=== PATIENT | female | born 1970 | race Caucasian/White ===

== ENCOUNTER → 2019-11-30 15:47 | Outpatient (CLI) | payer BC, SELFPAY ==
--- NOTE | ~2019-11-30 | MM_ITS ---
EXAMINATION: MM screening umu BI w todd HISTORY: Screening mammogram, family history of breast cancer in her mother. TECHNIQUE: Craniocaudal and mediolateral oblique 3-D tomosynthesis images were obtained and synthetic 2-D images were generated. CAD analysis was submitted and interpreted. COMPARISON: 11/04/2018, 07/19/2017, 07/10/2016 BREAST PARENCHYMAL COMPOSITION: There are scattered areas of fibroglandular density. FINDINGS: RIGHT BREAST: There is possible architectural distortion which is best appreciated in the middle thir d of the breast 7 cm from the nipple on the mediolateral oblique view. LEFT BREAST: There is no evidence of suspicious mass, calcification, or architectural distortion to s uggest malignancy. There has been no significant interval change. IMPRESSION: 1. Possible right breast architectural distortion. 2. Additional mammographic views and possible breast ultrasound are recommended. BI-RADS Category 0: Incomplete: Needs additional imaging evaluation. Reviewed, dictated and finalized at location A. N CHAINER IMPRESSION: 1. Possible right breast architectural distortion. 2. Additional mammographic views and possible breast ultrasound are recommended . BI-RADS Category 0: Incomplete: Needs additional imaging evaluation.
== END ==
PROVIDERS: PCP Family Medicine Adolescent Medicine; Visit Provider Nurse Practitioner Obstetrics & Gynecology
DX: Z12.31 Encounter for screening mammogram for malignant neoplasm of breast (principal); R92.8 Other abnormal and inconclusive findings on diagnostic imaging of breast
CPT/HCPCS: 77063; 77067

== ENCOUNTER → 2019-12-02 09:44 | Outpatient (CLI) | payer BC, SELFPAY ==
--- NOTE | ~2019-12-02 | MMUS_ITS ---
EXAMINATION: MM diagnostic mammo unilat RT, US breast RT limited HISTORY: Possible architectural distortion of the right breast on screening mammogram TECHNIQUE: Additional 3-D tomosynthesis images of the right breast were performed and synthetic 2-D i mages were generated. CAD analysis was submitted and interpreted. High resolution limited right breas t ultrasound was performed. COMPARISON: 11/30/2019, 11/04/2018, 07/19/2017, 07/10/2016 FINDINGS: MAMMOGRAPHIC FINDINGS: No definite architectural distortion persists with additional views of the right breast. ULTRASOUND: There is no evidence of focal abnormal solid or cystic lesion in the vicinity of the mammographic fin ding in question. A small cluster of cysts measuring up to 4 mm is noted at the 10:00 location 7 cm f rom the nipple. IMPRESSION: 1. No mammographic or sonographic evidence of malignancy. 2. Recommend routine screening mammography in one year. BI-RADS Category 2: Benign finding(s). Reviewed, dictated and finalized at location A. L PRESS SET UP OPERATOR IMPRESSION: 1. No mammographic or sonographic evidence of malignancy. 2. Recommend routine screening mammography in one year. BI-RADS Category 2: Benign finding(s).
== END ==
PROVIDERS: PCP Nurse Practitioner Obstetrics & Gynecology; Visit Provider Family Medicine Adolescent Medicine
DX: R92.8 Other abnormal and inconclusive findings on diagnostic imaging of breast (principal)
CPT/HCPCS: 76642; 77065

== ENCOUNTER → 2021-02-10 10:12 | Outpatient (CLI) | payer BC, SELFPAY ==
--- NOTE | ~2021-02-10 | MM_ITS ---
EXAMINATION: MM screening umu BI w todd HISTORY: Screening mammogram TECHNIQUE: Craniocaudal and mediolateral oblique 3-D tomosynthesis images were obtained and synthetic 2-D images were generated. CAD analysis was submitted and interpreted. COMPARISON: 12/02/2019 diagnostic right mammogram and limited right breast ultrasound 11/30/2019 11/04/2018, 07/19/2017 bilateral digital screening mammogram examinations BREAST PARENCHYMAL COMPOSITION: There are scattered areas of fibroglandular density. FINDINGS: There is no evidence of suspicious mass, calcification, or architectural distortion to sugg est malignancy in either breast. There has been no suspicious interval change. IMPRESSION: 1. No mammographic evidence of malignancy. 2. Recommend routine screening mammography in one year. BI-RADS Category 1: Negative Reviewed, dictated and finalized at location A.
== END ==
PROVIDERS: Visit Provider Obstetrics & Gynecology Gynecology
DX: Z12.31 Encounter for screening mammogram for malignant neoplasm of breast (principal)
CPT/HCPCS: 77063; 77067

== ENCOUNTER 2021-07-18 07:33 | Outpatient (CLI) | payer BC, SELFPAY ==
--- NOTE | 2021-07-27 14:10 | WPDHOMESLEEP ---
Sleep Study - Home Unattended Date of Study: 07/18/21 <Destiny Rodriguez DO - Last Filed: 07/27/21 14:26> Ordering Provider: Nancy Mayen MD <Destiny Rodriguez DO - Last Filed: 07/27/21 14:26> Interpreting Provider: Destiny Rodriguez DO <Destiny Rodriguez DO - Last Filed: 07/27/21 14:26> Home Sleep Study Type: Apnea Link Air <Desitny Rodriguez DO - Last Filed: 07/27/21 14:26> Height: 1.7 m <Destiny Rodriguez DO - Last Filed: 07/27/21 14:26> Weight: 93.44 kg <Destiny Rodriguez DO - Last Filed: 07/27/21 14:26> Body Mass Index: 32.2 <Destiny Rodriguez DO - Last Filed: 07/27/21 14:26> Neck Circumference (inches): 15 <Destiny Rodriguez DO - Last Filed: 07/27/21 14:26> [place]: 9 <Destiny Rodriguez DO - Last Filed: 07/27/21 14:26> Reason for Sleep Study The patient state that she snores loudly and has non restorative sleep. He has excessive daytime sleepiness and needs to take a nap in the afternoon. <Destiny Rodriguez DO - Last Filed: 07/27/21 14:26> Sleep History The patient is a 51-year-old female with asthma that had a home sleep test ordered by her primary care physician. The patient states that she snores loudly and has non restorative sleep. The patient states that she often awakens from sleep short of breath. She often awakens at night with heartburn, belching or cough. She frequently snores loud enough that others complain. She frequently has trouble sleeping when she has periods she often wakes up gasping for air throughout the night. She frequently has breathing problems at night observed by her . She denies any heart palpitations at night. She frequently falls asleep during the day but never while driving. He has trouble worse due to sleepiness. She denies sleep paralysis and cataplexy. She does experience fitted dreamlike scenes upon awakening or falling asleep. She denies having any nightmares. She denies feeling Fedder depressed and rarely feels anxious. She denies noticing parts of her body jerk. She rarely kicks at night. She frequently experiences crawling and aching feelings in her legs but rarely has any leg pain during the night. The patient rarely florian her teeth during sleep and never wakes up with morning jaw pain. She is frequently bothered by pain during the day and is never awakened by pain throughout the night. She constantly wakes up feeling stiff in the morning with sore and achy muscles. The patient goes to bed at 11:00 p.m. on the weekdays and 11:00 p.m. to midnight on the weekends. It takes her 15 minutes to fall asleep. She usually wakes up 2-3 times per night to urinate. It takes her 10 minutes to fall back asleep. The patient typically wakes up between 7 and 730 on the weekdays and 8:00 a.m. on the weekends. The patient gets about 8 hours of sleep per night. The patient currently lives with her and her 2 sons. The patient denies consuming any caffeinated beverages within 2 hours of going to bed. She does not engage in physical exercise before bedtime. She does not read but she will watch television before falling asleep. She does take naps in the afternoon then they are refreshing. The patient denies tobacco, alcohol and recreational drug use. She does consume 2 caffeinated sodas per day. <Destiny Rodriguez DO - Last Filed: 07/27/21 14:26> [facility] Past Medical History Medical History: Medical History Asthma Rhinorrhea <Destiny Rodriguez DO - Last Filed: 07/27/21 14:26> Surgical History Surgical History: Surgical History History of cholecystectomy History of hip replacement <Destiny Rodriguez DO - Last Filed: 07/27/21 14:26> Family History Family History: Family History
[2021-07-27 14:20] VITALS: BMI 32.2
== END 2021-07-19 12:17 | disposition home or self-care (01) ==
LOC: ANHCSM 08:01
PROVIDERS: PCP Family Medicine Adolescent Medicine; Visit Provider Internal Medicine Critical Care Medicine
DX: G47.9 Sleep disorder, unspecified (principal); R53.83 Other fatigue
CPT/HCPCS: 95806

== ENCOUNTER → 2022-05-03 11:17 | Outpatient (CLI) | payer BC, SELFPAY ==
--- NOTE | ~2022-05-03 | MM_ITS ---
EXAMINATION: MM screening umu BI w todd HISTORY: Screening TECHNIQUE: Craniocaudal and mediolateral oblique 3-D tomosynthesis images were obtained and synthetic 2-D images were generated. CAD analysis was submitted and interpreted. COMPARISON: Comparison to multiple prior studies sequentially, with oldest reviewed study dated 07/10. BREAST PARENCHYMAL COMPOSITION: There are scattered areas of fibroglandular density. FINDINGS: There is no evidence of suspicious mass, calcification, or architectural distortion to sugg est malignancy in either breast. There has been no suspicious interval change. IMPRESSION: 1. No mammographic evidence of malignancy. 2. Recommend routine screening mammography in one year. BI-RADS Category 1: Negative Reviewed, dictated and finalized at location A.
== END ==
PROVIDERS: PCP Family Medicine Adolescent Medicine; Visit Provider Obstetrics & Gynecology Gynecology
DX: Z12.31 Encounter for screening mammogram for malignant neoplasm of breast (principal)
CPT/HCPCS: 77063; 77067

== ENCOUNTER → 2023-06-25 12:05 | Outpatient (CLI) | payer BC, SELFPAY ==
--- NOTE | ~2023-06-25 | MM_ITS ---
EXAMINATION: MM screening umu BI w todd HISTORY: Screening mammogram TECHNIQUE: Craniocaudal and mediolateral oblique 3-D tomosynthesis images were obtained and synthetic 2-D images were generated. CAD analysis was submitted and interpreted. COMPARISON: 05/03/2022, 02/10/2021 bilateral screening mammogram examinations BREAST PARENCHYMAL COMPOSITION: There are scattered areas of fibroglandular density. FINDINGS: There is no evidence of suspicious mass, calcification, or architectural distortion to sugg est malignancy in either breast. There has been no suspicious interval change. IMPRESSION: 1. No mammographic evidence of malignancy. 2. Recommend routine screening mammography in one year. BI-RADS Category 1: Negative Reviewed, dictated and finalized at location A.
== END ==
PROVIDERS: PCP Obstetrics & Gynecology Gynecology; Visit Provider Advanced Practice Midwife
DX: Z12.31 Encounter for screening mammogram for malignant neoplasm of breast (principal)
CPT/HCPCS: 77063; 77067

== ENCOUNTER → 2023-07-18 11:07 | Outpatient (CLI) | payer BC, SELFPAY ==
--- NOTE | ~2023-07-18 | DEXA_ITS ---
Bone Density Report Name: CHRISTI KAYE Age: 53 Sex: Female Ethnicity: White Date of : 1970 Indication: postmenopausal; screening for osteoporosis; Referring Provider: BENTLEY BRENNAN Study: Bone densitometry was performed. Exam Date: July 18, 2023 Accession number: [id number] Bone Density: Region BMD T-score Z-score Classification AP Spine (L1-L4) 1.163 1.1 2.1 Normal Femoral Neck (Right) 0.910 0.5 1.6 Normal Total Hip (Right) 0.995 0.4 1.1 Normal World Health Organization criteria for BMD impression classify patients as: Normal (T-score at or above -1.0), Osteopenia (T-score between -1.0 and -2.5), or Osteoporosis (T-score at or below -2.5). 10-year Fracture Risk: FRAX not reported because: All T-scores for Spine Total, Hip Total, Femoral Neck at or above -1.0 Clinical Information Provided by Patient: Has used the following medications: Vitamin D Patient maximum height was 67.1 Menopause Age: 51 No regular weight bearing exercise Drinks caffeinated beverages Onset of menses at age 13 Number of children 3 Impression: The patient has normal bone mass. Discussion: BONE DENSITY IS ABOVE THE MINIMUM DESIRABLE LEVEL AT ALL SKELETAL SITES TESTED. This patient?s bone mineral density is above the minimum desirable level (T-score -1.0 or better) at all sites measured. The patient should follow a healthful lifestyle (good nutrition with adequate calcium and vitamin D, and appropriate weight-bearing exercise). Follow-Up: Consider repeating this study in 5 years or sooner if there is some new clinical indication. Reported by: [facility] on 07/18/2023 11:19:00 AM. Reviewed, dictated and finalized at location Bety ROMAN
== END ==
PROVIDERS: PCP Family Medicine Adolescent Medicine; Visit Provider Advanced Practice Midwife
DX: Z78.0 Asymptomatic menopausal state (principal)
CPT/HCPCS: 77080

== ENCOUNTER 2024-07-18 10:44 | Outpatient (CLI) | payer BC, SELFPAY ==
--- NOTE | ~2024-07-18 | MM_ITS ---
EXAMINATION: MM screening umu BI w todd HISTORY: Screening TECHNIQUE: Craniocaudal and mediolateral oblique 3-D tomosynthesis images were obtained and synthetic 2-D images were generated. CAD analysis was submitted and interpreted. COMPARISON: Comparison to multiple prior studies sequentially, with oldest reviewed study dated 11/04. BREAST PARENCHYMAL COMPOSITION: Not dense: There are scattered areas of fibroglandular density. FINDINGS: There is no evidence of suspicious mass, calcification, or architectural distortion to sugg est malignancy in either breast. There has been no suspicious interval change. IMPRESSION: 1. No mammographic evidence of malignancy. 2. Recommend routine screening mammography in one year. BI-RADS Category 1: Negative Reviewed, dictated and finalized at location B.
== END 2024-07-18 10:45 | disposition home or self-care (01) ==
LOC: ANHIMG 10:45
PROVIDERS: PCP Family Medicine Adolescent Medicine; Visit Provider Obstetrics & Gynecology Gynecology
DX: Z12.31 Encounter for screening mammogram for malignant neoplasm of breast (principal)
CPT/HCPCS: 77063; 77067

== ENCOUNTER 2024-08-18 08:53 | Outpatient (CLI) | payer BC, SELFPAY ==
--- NOTE | 2024-09-08 18:32 | P.SLEEP_ITS ---
Sleep Study - Home Unattended Date of Study: 08/18/24 Ordering Provider: LOTUS Hernandez Interpreting Provider: Destiny Rodriguez DO Home Sleep Study Type: Watch PAT Height: 1.7 m Weight: 99.79 kg Body Mass Index: 34.4 Neck Circumference (inches): 14 [place]: 12 Reason for Sleep Study Snoring, daytime hypersomnia Sleep History The patient is a 54-year-old female that had a sleep study ordered by the [facility] for evaluation of daytime hypersomnia. The patient admits to snoring loudly, excessive daytime sleepiness, Trouble maintaining sleep as well as interruptions in breathing while asleep. The patient does admit to choking and gasping while asleep. She denies having trouble breathing on her back. She denies having morning headaches. She admits to having a dry or sore mouth/ throat in the morning. She admits to nocturnal heartburn. She admits to nocturia. She denies having difficulty falling asleep. She does have difficulty falling back asleep if she wakes up during the night. She admits to having difficulty waking up early without an alarm. She denies the use of hypnotics or sedatives. She denies feeling anxious about sleep. She admits to feeling tired or fatigued during the day. She admits to feeling unrefreshed in the morning. She does have there was to fall asleep during the day. She does feel drowsy while driving. She denies sleep paralysis, cataplexy and hypnagogic / hypnopompic hallucinations. She denies clenching and grinding her teeth. She denies kicking and jerking her legs excessively. She denies having a restless feeling in her legs. She goes to bed at 11:00 p.m. on work days and at 11:30 p.m. on non-work days. It takes her 1 hour to fall asleep on work days and 30 minutes on non-work days. She typically gets 8 hours of sleep daily. Her sleep is slightly more restorative on her days off. She denies taking any plan naps. She denies dream enactment behavior. She denies sleep walking. She consumes 1-2 cups of caffeinated beverage per day. She denies alcohol and tobacco use. She exercises 1-2 nights per week. [facility] Past Medical History Medical History Asthma Rhinorrhea Surgical History Surgical History History of cholecystectomy (2017) History of total left hip replacement (2019) Family History Family History Mother Diabetes mellitus Family history of cardiovascular disease Sibling Family history of obesity Family history of coronary artery disease Family history of sleep apnea Father Family history of cardiovascular disease, Onset Age: 73 Other Carcinoma of colon Grandparent Carcinoma of colon Social History Social History Smoking status: Never smoker Alcohol intake: never Medications Home Medications Medication Instructions Recorded Confirmed Type multivitamin (One Daily 1 tablet PO DAILY 07/04/21 06/30/24 History Multivitamin tablet) inulin 2 gram chewable tablet g PO 01/01/22 06/30/24 History (Fiber Gummies) cholecalciferol (vitamin D3) 50 50 mcg PO DAILY 04/02/23 06/30/24 History mcg (2,000 unit) capsule omega-3 fatty acids 500 mg capsule 500 mg PO DAILY 04/02/23 06/30/24 History tirzepatide (weight loss) 2.5 2.5 mg (0.5 mL) subcut WEEKLY 4 09/04/24 Rx mg/0.5 mL subcutaneous pen weeks #2 mL injector (Zepbound) Sleep Procedure The sleep study was completed using WeizoomPAT a technically adequate device with seven channels: peripheral arterial tone, actigraphy, body position, snore, respiratory movement, pulse oximetry, sleep staging, and heart rate. Prior to using the device, the patient received verbal and written instructions for its a pplication and was provided with the help desk phone number for additional telephonic instruction with 24-hour availability of qualified personnel to answer questions. The study was scored using CMS guidelines. Sleep Architecture The total recording time is 7 hrs, 13 min. The total sleep time is 5 hrs, 47 min. Sleep latency is 19 minutes. REM latency is 49 minutes. The patient had 9 episodes of waking. Sleep architecture shows 15.3% deep sleep, 70.1% light sleep, and (as % Total Sleep Time) showed NREM (Light 70.1%; Deep 15.3%), and a 14.7% stage REM. The patient spent 38.3% of total sleep time in the supine position. Sleep efficiency was 80.14. Respiratory Analysis The overall AHI (pAHI 4%:) is 3.6. The central AHI is 1.6. The AHI was 2.5 in NREM and 9.4 in REM sleep. The AHI was 2.0 in Supine and 4.5 in Non-supine sleep. Percent of Sadi Nielsen respirations is 0.0. Oximetry Data The oxygen desaturation index (RODLOFO 4%:) is 3.4. The mean saturation is 94%, and the lowest saturation is 88%. Time spent with saturation < 88% is 0.0 minutes. Snoring Profile Snoring average intensity is 41 dB. The patient snored above 45 decibels for 12.0 minutes, 3.5% of sleep time. Cardiac Profile The average pulse rate is 76 beats per minutes. The lowest pulse rate is 65 bpm. The highest pulse rate reported is 93 bpm. Atrial fibrillation was not detected. Premature beats occur <0.1 per minute. Assessment and Plan Assessment and Plan (1) Excessive daytime sleepiness: Code(s): G47.19 - Other hypersomnia Status: Acute Assessment and Plan: The patient had an overall AHI of 3.6 with desaturation down to 88%. This is not consistent with sleep-disordered breathing. Due to the patient's excessive daytime sleepiness, further evaluation is warranted. I recommend that the patient have an in lab split study with the use of a hypnotic (Lunesta 2-3 mg or Ambien 5-10 mg) to ensure we obtain enough sleep data. Data The data obtained during this sleep study is adequate for interpretation. Certification This sleep study has been reviewed by a board certified sleep medicine physician.
[2024-09-08 20:44] VITALS: BMI 34.4
== END 2024-08-19 12:09 | disposition home or self-care (01) ==
LOC: ANHCSM 08:54
PROVIDERS: PCP Family Medicine Adolescent Medicine; Visit Provider Physician Assistant
DX: G47.19 Other hypersomnia (principal)
CPT/HCPCS: 95800

== ENCOUNTER 2025-05-11 08:05 | Outpatient (CLI) | payer BC, SELFPAY ==
--- OUTSIDE RECORDS SUMMARY | 2025-05-11 08:11 | XMS_ITS | Referral Summary ---
[facility] Address [address] [place] [address] Care Team Providers Care Can Worker Name Role Phone Jose Coffman MD Primary Care Prov ider Allergies No known active allergies Medications albuterol HFA (PROAIR HFA) 90 mcg/actuation inhaler inhale 2 puff by inhalation route every 4 - 6 hours as needed 0 Inhaler 0 6 Active budesonide-formo terol (SYMBICORT) 160-4.5 mcg/actuation inhaler Inhale 2 puffs 2 (two) times a day. Rinse mouth with water after use to reduce aftertaste and incidence of candidiasis. Do not swallow. Active psyllium husk-calcium 1-60 gram-mg capsule Take by mouth. Activ e multivit with min-folic acid 200 mcg tablet,chewable Take by mouth. Active fluticasone (FLONASE) 50 mcg/actuation nasal spray Administer 1 spray into each nostril daily. Active Bifidobacterium infantis (ALIGN) 4 mg capsule 1 capsule (4 mg total) Active cyanocobalamin, vitamin B-12, (Vitamin B-12) 1,000 mcg/mL drops Take by mouth Active Lactobacillus acidophilus 10 billion cell capsule Take by mouth Active polyethylene glycol (MIRALAX) 17 gram/dose bulk powder Take 17 g by mouth daily Active Zepbound 2.5 mg/0.5 mL pen injector Per pt - last dose 10/30/2024 Active cholecalciferol 25 mcg (1,000 unit) tablet Take 1 tablet (1,000 Units total) by mouth daily Active omega-3 fatty acids-fish oil 300-1,000 mg capsule Take 2 capsules (2 g total) by mouth daily Active Active Problems Problem Noted Date Diagnosed Date Abdominal pain 06/13/2024 Encounter for screening colonoscopy 06/09/2024 Chronic constipation 03/31/2018 Assessment & Plan (03/31/2018 6:15 PM CDT): This is recent over the past 6 months associated with menstrual periods and associated with some feeling of mild nausea. This may be IBS with constipation. Recommend trial of MiraLax 17 g daily water plus stool softener., or continue on fiber but in the form of granular preparation 2 tsp daily in juice or water. plus stool softener. I recommend complete colonoscopy. Patient is almost at the age of repeat screening after July 05 and will schedule it to be done. She will call sooner if there are any other problems. She states she has had recent blood work done including normal thyroid function. Family history of colonic polyps 03/31/2018 Family history of colon cancer 03/31/2018 Genetic predisposition to disease 05/01/2011 Social History Tobacco Use Types Packs/Day Years Used Date Smoking Tobacco: Never Smokeless Tobacco: Never Tobacco Cessation:Counseling Given: Not Answered Alcohol Use Standard Drinks/Week Comments Yes 0 (1 standard drink = 0.6 oz pur e alcohol) AUDIT-C Answer Date Recorded Q1: How often do you have a drink containing alc ohol? Monthly or less 11/12/2024 Q2: How many drinks containi ng alcohol do you have on a typical day when you are drinking? 1 or 2 11/12/2024 Frequency of Binge Drinking Not on file 10/16 Personal Safety Answer Date Recorded Have you ever been in or are you currently in a harmful physical or emotional relationship or is someone making you feel afraid or unsafe? Denies 11/13/2024 Comments Unknown Sex and Gender Information Value Date Recorded Sex Assigned at Not on file Legal Sex Female 2:59 AM SALES ORDER COORDINATOR Gender Identity Not on file Sexual Orientation Not on file Last Filed Vital Signs Vital Sign Reading Time Taken Comments Blood Pressure 131/92 11/13/2024 1:30 PM SALES ORDER COORDINATOR Pulse 79 11/13/2024 1:30 PM SALES ORDER COORDINATOR Temperature 36.8 C (98.2 F) 11/13/2024 1:30 PM SALES ORDER COORDINATOR Respiratory Rate 16 11/13/2024 1:30 PM SALES ORDER COORDINATOR Oxygen Saturation 99% 11/13/2024 1:30 PM SALES ORDER COORDINATOR Inhaled Oxygen Concentration - - Weight 97.5 kg (215 lb) 11/13/2024 11:11 AM SALES ORDER COORDINATOR Height 170.2 cm (5' 7) 11/13/2024 11:11 AM SALES ORDER COORDINATOR Body Mass Index 33.67 11/13/2024 11:11 AM SALES ORDER COORDINATOR Plan of Treatment Not on file Procedures Procedure Name Priority Date/Time Associated Diagnosis Comments COLONOSCOPY 11/13/2024 11:02 AM SALES ORDER COORDINATOR SCREENING MAMMOGRAM Routine 11/25/2012 1 1:57 AM SALES ORDER COORDINATOR from Last 3 Months or Most Recently Relevant to Health Maintenance Results * Colonoscopy (11/13/2024 11:02 AM SALES ORDER COORDINATOR) Anatomical Region Laterality Modality Other Narrative Procedure Note Hien Franklin MD - 11/13/2024 11:02 AM CST [facility] Patient Name: Dali Valle Procedure Date: 11/13/2024 11:02 AM Date of : 1970 Admit Type: Outpatient Age: 54 Gender: Female Attending MD: Hien Franklin M.D. Room: [facility] ENDOSCOPY ROOM 2 Note Status: Finalized Patient Profile: This is a 54 year old female with no significantpmhx here for colonoscopy for chronic constipation and colon cancer screening. Family hx of brother and mother with polyps, maternal aunt with coloncancer. Colonoscopy 2017 showed diverticulosis in thesigmoid colon Procedure: Colonoscopy Indications: Colon cancer screening in patient at increasedrisk: Family history of colon polyps in [id number]-vepcak relatives, Last colonoscopy: August 2018 Referring MD: Jose Coffman M.D. Providers: Hien Franklin M.D. Impression: - Anal stricture found on digital rectal exam. - Diverticulosis in the sigmoid colon, in the descending colon and in the cecum. - External and internal hemorrhoids. - Mildly patchy erythematous mucosa in the rectumthat is nonspecific and could be from bowel prep.Biopsied. Recommendation: - Patient has a contact number available for emergencies. The signs and symptoms of potential delayed complications were discussed with thepatient. Return to normal activities tomorrow. Written discharge instructions were provided to thepatient. - Discharge patient to home (with escort). - Resume previous diet. - Continue present medications. - Await pathology results. - Repeat colonoscopy in 5 years for surveillancebased on pathology results given family history. - Return to referring physician as previously scheduled. Medicines: Monitored Anesthesia Care Complications: No immediate complications. Estimated Blood Loss: Estimated blood loss: none. Procedure: Pre-Anesthesia Assessment: - Prior to the procedure, a History and Physicalwas performed, and patient medications and allergieswere reviewed. The patient is competent. The risks and benefits of the procedure and the sedation optionsand risks were discussed with the patient. Allquestions were answered and informed consent was obtained. Patient identification and proposed procedure were verified by the physician, the pyridine recovery operator and the pest control technician in the endoscopy suite. Mental Status Examination: normal. Prophylactic Antibiotics: The patient does not require prophylactic antibiotics. Prior Anticoagulants: The patient has taken no anticoagulant or antiplatelet agents. Afterreviewing the risks and benefits, the patient was deemed in satisfactory condition to undergo the procedure.The anesthesia plan was to use monitored anesthesiacare (MAC). Immediately prior to administration of medications, the patient was re-assessed foradequacy to receive sedatives. The heart rate, respiratory rate, oxygen saturations, blood pressure, adequacyof pulmonary ventilation, and response to care were monitored throughout the procedure. The physical status of the patient was re-assessed after the procedure. The benefits, risks and alternatives of theprocedure and sedation were discussed and informed consentwas obtained. All questions were answered. Please referto the signed informed consent document in the medical record. The bowel preparation used was Miralax and bisacodyl tablets via split dose instruction. The scope was passed under direct vision. TheColonoscope [id number] was introduced through the anus and advanced to the the cecum, identified by appendiceal orifice and ileocecal valve. The scopewas passed under direct vision. The PediatricColonoscope [id number] was introduced through the and advanced to the. The colonoscopy was performedwithout difficulty. The patient tolerated the procedurewell. The quality of the bowel preparation was excellent. Bowel prep was administered using a split dose. Findings: The digital rectal exam findings include mildly strictured anus thatwas traversed with pediatric colonoscope. Multiple small and large-mouthed diverticula were found in thesigmoid colon, descending colon and cecum. External and internal hemorrhoids were found during retroflexion. A patchy area of mildly erythematous mucosa was found in the rectum. This was biopsied with a cold forceps for histology. Hien Franklin M.D. 11/13/2024 1:20:37 PM Number of Addenda: 0 Note Initiated On: 11/13/2024 11:02 AM Procedure Code(s): --- Professional --- 87425, Colonoscopy, flexible; diagnostic, including collection of specimen(s) by brushing or washing, when performed (separateprocedure) --- Technical --- 00730, Colonoscopy, flexible; diagnostic, including collection of specimen(s) by brushing or washing, when performed (separateprocedure) Diagnosis Code(s): --- Professional --- Z83.71, Family history of colonic polyps K62.4, Stenosis of anus and rectum K64.8, Other hemorrhoids K57.30, Diverticulosis of large intestine without perforation orabscess without bleeding --- Technical --- Z83.71, Family history of colonic polyps K62.4, Stenosis of anus and rectum K64.8, Other hemorrhoids K57.30, Diverticulosis of large intestine without perforation orabscess without bleeding CPT copyright 2020 [employer]. All rights reserved. The codes documented in this report are preliminary and upon ict programmer reviewmay be revised to meet current compliance requirements. Recognized by the [employer] [employer] for promoting quality in endoscopy Hien Franklin MD ENDOSCOPY PROCEDURES Final Resul t * Screening Mammogram (11/25/2012 11:57 AM SALES ORDER COORDINATOR) Anatomical Region Laterality Modality Breast N/A Mammography 11/25/2012 11:5 7 AM SALES ORDER COORDINATOR Narrative 11/25/2012 12:16 PM SALES ORDER COORDINATOR TAMRA NERI M.D. FINAL REPORT ACC# Date Time Exam [id number] Nov 25, 2012 11:57:00 [facility] [id number] Screening Mamm Bilat Technologist(s): Jaycee Brown; ; EXAMINATION: Mammogram Findings: A Full-Field Digital Screening Mammogram was performed. Views obtained: bilateral craniocaudal; bilateral mediolateral oblique. Computer Aided Detection was performed with [employer], version 9.2. The present examination has been compared to prior imaging studies performed at [facility] on 06/19/2011, 05/02/2010 and 08/26/2009. There are scattered fibroglandular densities. There is no suspicious abnormality in either breast. IMPRESSION: Annual screening mammography is recommended. OVERALL FINAL ASSESSMENT: BI-RADS CATEGORY 1: Negative. Requested By: Jennifer Holt M.D. Dictated By: TAMRA NERI M.D. on Nov 25 2012 12:16P This document has been electronically signed by: TAMRA NERI M.D. on Nov 25 2012 12:16P Procedure Note Provider, MD Madai - 02/13/2017 TAMRA NERI M.D. FINAL REPORT ACC# Date Time Exam [id number] Nov 25, 2012 11:57:00 [facility] [address] Screening Mamm Bilat Technologist(s): Jaycee Brown; ; EXAMINATION: Mammogram Findings: A Full-Field Digital Screening Mammogram was performed. Views obtained: bilateral craniocaudal; bilateral mediolateral oblique. Computer Aided Detection was performed with [employer], version 9.2. The present examination has been compared to prior imaging studies performed at [facility] on 06/19/2011, 05/02/2010 and 08/26/2009. There are scattered fibroglandular densities. There is no suspicious abnormality in either breast. IMPRESSION: Annual screening mammography is recommended. OVERALL FINAL ASSESSMENT: BI-RADS CATEGORY 1: Negative. Requested By: Jennifer Holt M.D. Dictated By: TAMRA NERI M.D. on Nov 25 2012 12:16P This document has been electronically signed by: TAMRA NERI M.D. on Nov 25 2012 12:16P Historical Provider MD RABAGO MAMMO PROCEDURES Melinda l Result from Last 3 Months or Most Recently Relevant to Health Maintenance Insurance IZI-collecte [facility] Advance Directives For more information, please contact: [phone] * Full Code (Latest Code Status on File) Date Activated Date Inactivated Comments 11/13/2024 11:08 AM 11/13/2024 5:44 PM Care Teams Can Worker Relationship Specialty Start Date End Date Jose Coffman MD [address] [place] [address] PCP - General 07/31/16
--- OUTSIDE RECORDS SUMMARY | 2025-05-11 08:11 | XMS_ITS | Continuity of Care Document ---
Author Organization [facility] Address [address] [place] [address] Phone Care Team Providers Care Asphalt Tamper Name Role Phone Floyd Olmstead MD Unavailable [...] visit,est, mod [facility], [address], [place], [place], [id number], [place] tel:[phone] [facility] Left Hip (chief complaint) Unilateral primary osteoarthritis, left hip [address]. [address], [place], [place], [id number] , [place]. tel: [phone] Office/outpat ient visit,est, mod [facility], [address], [place], [place], [id number], [place] tel:[phone] [facility] Left hip (chief complaint) Trochanteric bursitis, left hipPain in left hip 9 Aysha Barrientos. [address], [place], [place], [id number] , [place]. tel: [phone] Office/outpat ient visit,new, low [facility], [address] [address], [place], [place], [id number], [place] tel:[phone] [facility] left hip pain (chief complaint) Pain in left hipTrochanteric bursitis, left hip Jan-0 9 Braden Billingsley. [address], [address], [place], [place], [address] , [place]. tel: [phone] Family History Family Member Type Diagnosis Age [...] er Payers Payer name Insurance type Covered alliance party ID Authoriza tisam(s) Sal [facility] [id number] Social History Type Description Quantity Date Captured [...]
--- OUTSIDE RECORDS SUMMARY | 2025-05-11 08:11 | XMS_ITS | Clinical Summary ---
Author Organization [facility] Address [address] [place] [phone] Phone Care Team Providers Care Planning Aide Name Role Phone Jose Coffman MD Primary Care Provider [phone] Allergies No known active allergies Medications budesonide-form oteroL (Symbicort) 160-4.5 mcg/actuation HFA Aerosol Inhaler INHALE 2 PUFFS BY MOUTH TWICE DAILY IN THE MORNING AND EVENING. RINSE MOUTH AFTER EVERY USE. 04/28/2019 Active multivit with min-folic acid 200 mcg Tablet, Chewable Take by mouth. Active polyethylene glycol 3350 (Miralax) 17 gram/dose Powder Take 17 Grams by mouth daily. Dissolve in 8 ounces of fluid and drink entire liquid Active Active Problems No known active problems Family History Medical History Relation Name Comments Colon Polyps Brother 50s Colon Cancer Maternal Aunt 1 1 of 11. 70s Colon Cancer Maternal Aunt 2 1 of 11 60s or 70s Breast Cancer Mother Colon Polyps Mother 70s Relation Name Status Comments Brother Maternal Aunt 1 Other Maternal Aunt 2 Mother Social History Tobacco Use Types Packs/Day Years Used Date Smoking Tobacco: Never Smokeless Tobacco: Never Alcohol Use Standard Drinks/Week Comments Yes 0 (1 standard drink = 0.6 oz pur e alcohol) occasional Comments Unknown Sex and Gender Information Value Date Recorded Sex Assigned at Not on file Legal Sex Female 4:02 PM SALES MARKETING COORDINATOR Gender Identity Not on file Sexual Orientation Not on file Last Filed Vital Signs Vital Sign Reading Time Taken Comments Blood Pressure 126/83 09/06/2021 1:58 PM SALES MARKETING COORDINATOR Pulse 77 09/06/2021 1:58 PM SALES MARKETING COORDINATOR Temperature - - Respiratory Rate - - Oxygen Saturation - - Inhaled Oxygen Concentration - - Weight 97.5 kg (215 lb) 09/06/2021 1:58 PM SALES MARKETING COORDINATOR Height 170.2 cm (5' 7) 09/06/2021 1:58 PM SALES MARKETING COORDINATOR Body Mass Index 33.67 09/06/2021 1:58 PM SALES MARKETING COORDINATOR Plan of Treatment Health Maintenance Due Date Last Done Comments DTAP/TDAP/TD VACCINES (1 - Tdap) 1987 HEPATITIS B VACCINES (1 of 3 - 19+ 3-dose series) 1987 HPV/Cotest (21-29) 1989 HPV/Cotest (30-65) 1998 FIT-DNA Q 3 years 2013 FIT/FOBT Q 1 year 2013 Flex Sig/CT Colonography Q 5 years 2013 ZOSTER VACCINE (1 of 2) 2018 BREAST CANCER SCREENING 12/02/2020 12/02/19 20, 11/30/2019, 11/30/2019, Additional history exists CERVICAL CANCER SCREENING 12/06/2023 PAP SMEAR 12/06/2023 12/06/2020, 01/2020, 08/13/2018 INFLUENZA VACCINE (#1) 2025 08/07/2021 COLORECTAL SCREENING 08/21/2028 08/21/2018, 11/09/19 11 Colorectal Cancer Screening 08/21/2028 Procedures Procedure Name Priority Date/Time Associated Diagnosis Comments ENDOSCOPY, COLON, SCREENING Routine 11/09/2010 from Last 3 Months or Most Recently Relevant to Health Maintenance Results * ENDOSCOPY, COLON, SCREENING (11/09/2010) Kingsley Osborn MD GI PROCEDURE ORDERABLES Edited Result - Final from Last 3 Months or Most Recently Relevant to Health Maintenance Insurance [facility] BLUE ACCESS CHOICE Care Teams Planning Aide Relationship Specialty Start Date End Date Jose Coffman MD PCP - General Family Practice 09/14/20
--- OUTSIDE RECORDS SUMMARY | 2025-05-11 08:11 | XMS_ITS | Clinical Summary ---
Author Organization [facility] Address [address] [place] [address] Care Team Providers Care Intermodal Owner Operator Truck Driver Name Role Phone Jose Coffman MD Primary Care Provider + Jose Coffman MD Unavailable [phone] Jose Coffman MD Unavailable [phone] Source Comments [facility],non-owned Affiliates and Associated Physician Practices is amultiple site organization consisting of ambulatory clinics and hospital sitesin [place], [place], [place] and [place]. This disclosure is being madepursuant to the Care Everywhere program and may not contain all information available regarding this patient. Last updated 18.[facility] Allergies No known active allergies Medications * Be aware that medications may not be up to date on this document. Alwaysverify current medications with the patient. SYMBICORT 160-4.5 MCG/ACT inhaler INHALE 2 PUFFS BY MOUTH TWICE DAILY IN THE MORNING AND EVENING. RINSE MOUTH AFTER EVERY USE. 3 9 Active celecoxib (CELEBREX) 200 MG capsuleIndications: Primary osteoarthritis of left hip Take 1 capsule by mouth once daily 30 capsule 2 9 Active Immunizations Immunization Administration Dates Next Due INFLUENZA VACCINE 07/22/2019 Social History Tobacco Use Types Packs/Day Years Used Date Smoking Tobacco: Never Smokeless Tobacco: Never Comments Unknown Sex and Gender Information Value Date Recorded Sex Assigned at Not on file Legal Sex Female 4:08 PM CDT Gender Identity Not on file Sexual Orientation Not on file Last Filed Vital Signs Vital Sign Reading Time Taken Comments Blood Pressure - - Pulse - - Temperature - - Respiratory Rate - - Oxygen Saturation - - Inhaled Oxygen Concentration - - Weight 97.5 kg (215 lb) 05/11/2019 8:33 AM CDT Height 170.2 cm (5' 7) 05/11/2019 8:33 AM CDT Body Mass Index 33.67 05/11/2019 8:33 AM CDT Plan of Treatment Health Maintenance Due Date Last Done Comments COLOGUARD (AGES 45-75) - COL ON CA SCREENING 1970 COLON MONITORING 1970 COLONOSCOPY - COLON CA SCREENING 1968 CT COLONOGRAPHY - COLON CA SCREENING 1970 Colorectal Cancer Screening 1970 FIT - COLON CA SCREENING 1968 FLEX SIG - COLON CA SCREENING 1970 LIPID TESTING 1970 MAMMOGRAM 1968 HIV SCREENING 1983 HEPATITIS C SCREENING 07/01/1986 DTAP/TDAP/TD VACCINES (1 - Tdap) 1987 HEPATITIS B VACCINE (1 of 3 - 19+ 3-dose series) 1987 PNEUMOCOCCAL VACCINE 50+ (1 of 1 - PCV) 2018 ZOSTER VACCINE (1 of 2) 2018 SCREENING FOR DIABETES 05/11/2019 COVID-19 VACCINE (1 - 2023-2 5 season) 2024 DEPRESSION SCREENING 10/14/2024 INFLUENZA VACCINE (#1) 2025 07/22/2019 HIB VACCINE Aged Out No longer eligi ble based on patient's age to complete this topic HPV VACCINE Aged Out No longer eligi ble based on patient's age to complete this topic MENINGOCOCCAL (Group B) VACC INE SHARED DECISION-MAKING Aged Out No longer eligibl e based on patient's age to complete this topic MENINGOCOCCAL GROUPS A/C/Y/W VACCINE Aged Out No longer eligible b ased on patient's age to complete this topic Insurance ANTHEM * Guarantor: CHRISTI VALLE Account Type Relation to Patient Date of Phone Billing Address Personal/Family 1970 [id number] ANTHEM ANTHEM ANTHEM ANTHEM ANTHEM ANTHEM ANTHEM Care Teams Intermodal Owner Operator Truck Driver Relationship Specialty Start Date End Date Jose Coffman MD [address] [address] PCP - General 06/05/19 Jose Coffman MD [address] [place] [address] Family Medicine 06/05/19 Jose Coffman MD [address] [place] [id number] 04/21/19
--- OUTSIDE RECORDS SUMMARY | 2025-05-11 08:11 | XMS_ITS | Clinical Summary ---
[facility] Organization [facility] Address [address] [place] [address] Care Team Providers Care Electronic Warfare Technician Name Role Phone Jose Coffman MD Primary [...] cancer 03/31/2018 Genetic predisposition to disease 05/01/2011 Surgical History Surgery Date Site/Laterality Comments CHOLECYSTECTOMY 12/12/2016 - 01/11/2017 APPENDECTOMY 10/14/2007 - 10/13/2008 COLONOSCOPY 10/14/2007 - 10/13/2008 Normal, Internal Hemorrhoids UPPER GASTROINTESTINAL ENDOSCOPY 11/09/2010 Normal Medical History Medical History Date Comments Ruptured appendix 10/14/2007 Ruptured Mayela joslyn Family History Medical History Relation Name Comments Colon polyps Mother Other Mother Breast; Colon cancer Mother's Sister Other Other No family histo ry of Coronary artery disease, premature; Relation Name Status Comments Mother Mother's Sister Other Social History Tobacco Use Types Packs/Day Years [...] on file Legal Sex Female 2:59 AM MATTRESS STUFFER Gender Identity Not on file Sexual Orientation Not on file Obstetrics History Last Filed Vital Signs Vital Sign Reading Time Taken Comments Blood Pressure 131/92 11/13/2024 1:30 PM MATTRESS STUFFER Pulse 79 11/13/2024 1:30 PM MATTRESS STUFFER Temperature 36.8 C (98.2 F) 11/13/2024 1:30 PM MATTRESS STUFFER Respiratory Rate 16 11/13/2024 1:30 PM MATTRESS STUFFER Oxygen Saturation 99% 11/13/2024 1:30 PM MATTRESS STUFFER Inhaled Oxygen Concentration - - Weight 97.5 kg (215 lb) 11/13/2024 11:11 AM MATTRESS STUFFER Height 170.2 cm (5' 7) 11/13/2024 11:11 AM MATTRESS STUFFER Body Mass Index 33.67 11/13/2024 11:11 AM MATTRESS STUFFER Plan of Treatment Health Maintenance Due Date Last Done Comments Cervical Cancer Screening 1968 Depression Screening 1968 Hepatitis C Screening 1968 DTaP/Tdap/Td Vaccine (1 - Tdap) 1979 Hepatitis B Screening 1986 Regular Well Visit/Exam 18-64 1986 Breast Cancer Screening-Mammogram 11/25/2013 11/25/2012 Zoster Vaccine (2 of 2) 03/31/2021 02/03/2021 Influenza Vaccine (#1) 2025 3, 09/03/2022, 08/02/2021, Additional history exists Colon Cancer Screening-Colonoscopy 11/13/2034 11/13/2024, 08/21/2018, 11/09/2010 Colon Cancer Screening-CT Colonography Discontinued 11/13/2024, 08/21/2018, 11/09/2010 Colon Cancer Screening-DNA Stool Discontinued 11/13/2024, 08/21/2018, 11/09/2010 Colon Cancer Screening-FIT Discontinued 11/13, 08/21/2018, 11/09/2010 Colon Cancer Screening-Sigmoidoscopy Discontinued 11/13/2024, 08/21/2018, 11/09/2010 Pneumococcal vaccine <65 Aged Out No longer eligible based on patient's age to complete this topic Procedures Procedure Name Priority Date/Time Associated Diagnosis Comments COLONOSCOPY 11/13/2024 11:02 AM MATTRESS STUFFER SCREENING MAMMOGRAM Routine 11/25/2012 1 1:57 AM MATTRESS STUFFER from Last 3 Months or Most Recently Relevant to Health Maintenance Results * Colonoscopy (11/13/2024 11:02 AM MATTRESS STUFFER) Anatomical Region Laterality Modality Other Narrative Procedure Note Hien Franklin MD - 11/13/2024 11:02 AM CST [facility] Patient Name: Dali Valle Procedure Date: 11/13/2024 11:02 AM Date of : 1970 Admit Type: Outpatient Age: 54 Gender: Female Attending MD: Hien Franklin M.D. Room: [facility] ENDOSCOPY ROOM 2 Note Status: Finalized Patient Profile: This is a 54 year old female with no significantpmhx here for colonoscopy for chronic constipation and colon cancer screening. Family hx of brother and mother with polyps, maternal aunt with coloncancer. Colonoscopy 2018 showed diverticulosis in thesigmoid colon Procedure: Colonoscopy Indications: Colon cancer screening in patient at increasedrisk: Family history of colon polyps in [id number] relatives, Last colonoscopy: August 2018 Referring MD: [...] procedure were verified by the physician, the shoemaking cutter and the budget technician in the endoscopy suite. Mental Status [...] scope was passed under direct vision. TheColonoscope [id number] was introduced through the anus and advanced to the the cecum, identified by appendiceal orifice and ileocecal valve. The scopewas passed under direct vision. The PediatricColonoscope [id number] was introduced through the and advanced to [...] 11:02 AM Procedure Code(s): --- Professional --- 73702, Colonoscopy, flexible; diagnostic, including collection of specimen(s) by brushing or washing, when performed (separateprocedure) --- Technical --- 30978, Colonoscopy, flexible; diagnostic, including collection of specimen(s) [...] perforation orabscess without bleeding CPT copyright 2020 [employer]. All rights reserved. The codes documented in this report are preliminary and upon medical records coder reviewmay be revised to meet current compliance requirements. Recognized by the [employer] for promoting quality in endoscopy Hien Franklin MD ENDOSCOPY PROCEDURES Final Resul t * Screening Mammogram (11/25/2012 11:57 AM MATTRESS STUFFER) Anatomical Region Laterality Modality Breast N/A Mammography 11/25/2012 11:5 7 AM MATTRESS STUFFER Narrative 11/25/2012 12:16 PM MATTRESS STUFFER TAMRA NERI M.D. FINAL REPORT ACC# Date Time Exam [id number] Nov 25, 2012 11:57:00 [facility] [id number] Screening Mamm Bilat Technologist(s): Jaycee Brown; ; EXAMINATION: Mammogram Findings: A Full-Field Digital Screening Mammogram was performed. Views obtained: bilateral craniocaudal; bilateral mediolateral oblique. Computer Aided Detection was performed with mDialog, version 9.2. The present examination has been compared to prior imaging studies performed at [facility] on 06/19/2011, 05/02/2010 and 08/26/2009. There are [...] M.D. FINAL REPORT ACC# Date Time Exam [id number] Nov 25, 2012 11:57:00 [facility] [id number] Screening Mamm Bilat Technologist(s): Jaycee Brown; ; EXAMINATION: Mammogram Findings: A Full-Field Digital Screening Mammogram was performed. Views obtained: bilateral craniocaudal; bilateral mediolateral oblique. Computer Aided Detection was performed with mDialog, version 9.2. The present examination has been compared to prior imaging studies performed at [facility] on 06/19/2011, 05/02/2010 and 08/26/2009. There are [...] Most Recently Relevant to Health Maintenance Insurance [facility] Advance Directives For more information, please contact: [phone] * Full Code (Latest Code Status on File) Date Activated Date Inactivated Comments 11/13/2024 11:08 AM 11/13/2024 5:44 PM Care Teams Electronic Warfare Technician Relationship Specialty Start Date End Date Jose Coffman MD [address] [place] [address] PCP - General 07/31/16
--- OUTSIDE RECORDS SUMMARY | 2025-05-11 08:11 | XMS_ITS | Clinical Summary ---
Author Organization [facility] Address [address] [place] [id number] Care Team Providers Care Cell Preparer Name Role Phone Unavailable Primary Care Provider Unavailabl e Allergies No known active allergies Social History Tobacco Use Types Packs/Day Years Used Date Smoking Tobacco: Never Assessed Comments Unknown Sex and Gender Information Value Date Recorded Sex Assigned at Not on file Legal Sex Female 10:23 AM CDT Gender Identity Not on file Sexual Orientation Not on file Plan of Treatment Health Maintenance Due Date Last Done Comments Cervical Cancer Screening Pa p Smear (Age 30 to 64) Every 3 Years 1968 Colorectal Cancer Screening Colonoscopy (10 Years) 1968 Annual Physical 1971 Hepatitis C 1986 DTaP, Tdap and Td Vaccines ( 1 - Tdap) 1987 Hepatitis B Vaccines (1 of 3 - 19+ 3-dose series) 1987 Cervical Cancer Screening Pa p with HPV Testing (Age 30 to 64) Every 5 Years 1998 Cervical Cancer Screening wi th HPV 1998 Mammogram Screening 2008 Pneumococcal Vaccine: 50+ Years (1 of 1 - PCV) 2018 Zoster Vaccines (2 of 2) 03/31/2021 02/03/2021 COVID-19 Vaccine (3 - 2023-2 5 season) 2024 10/09/2021, 12/22/2020 Meningococcal B Vaccine Aged Out No l onger eligible based on patient's age to complete this topic Meningococcal Vaccine Aged Out No amna katie eligible based on patient's age to complete this topic RSV Immunizations Under 20 Months Aged Out No longer eligible b ased on patient's age to complete this topic Insurance [facility]
[2025-06-01 13:32] VITALS: BMI 34.4
--- NOTE | 2025-06-01 13:32 | P.SLEEP_ITS ---
Sleep Study Date of Study: 05/11/25 Ordering Provider: Enrique Castro APRN Interpreting Physician: Destiny Rodriguez DO Sleep Study Type: Polysomnogram Height: 1.7 m Weight: 99.79 kg Body Mass Index: 34.4 Neck Circumference (inches): 14.25 [place]: 12 Reason for Sleep Study Daytime hypersomnia Sleep History The patient is a 54-year-old female that had a sleep study ordered by the pulmonary group for evaluation of sleep apnea. The patient denies awakening from sleep short of breath. She denies awakening at night with heartburn, belching, or cough. She frequently snores, and it is frequently loud enough that others complain. She occasionally has trouble sleeping when she has a cold. She denies waking up gasping for air throughout the night. She denies having breathing problems at night observed by herself or others. She denies sweating excessively at night. She denies having heart palpitations or irregular heartbeats during the night. She frequently falls asleep during the day but never while driving. She denies sleep paralysis, cataplexy, and hypnagogic-hypnopompic hallucinations. She occasionally has trouble at school or work due to sleepiness. She denies feeling afraid of going to sleep. She denies having nightmares. She denies remembering her dreams. She denies having thoughts racing through her mind. She rarely feels sad or depressed. She occasionally has anxiety. She occasionally has muscular tension. She denies noticing parts of her body jerk. She rarely kicks during the night. She denies having crawling and aching feelings in her legs and denies having leg pain during the night. She denies grinding her teeth during sleep and denies awakening with morning jaw pain. She denies being bothered by pain during the day and denies being awakened by pain during the night. She constantly wakes up feeling stiff in the morning. She constantly wakes up with sore or achy muscles. She rarely wakes up with pain in the neck, spine, and other joints. She goes to bed at 9 p.m. on weekdays and between 10-11 p.m. on the weekends. It takes her 10-15 minutes to fall asleep. She wakes up 2-3 times throughout the night to urinate and is able to fall back asleep within 5 minutes. She wakes up at 6:30 a.m. on weekdays and at 8 a.m. on the weekends. She typically gets 7-8 hours of sleep per night. She does not stay in bed after waking up in the morning. She currently lives with her and adult child. She denies consuming any caffeinated beverages within 2 hours of bedtime. She denies engaging in physical exercise before bedtime. She will read and watch television before falling asleep. She will take naps in the afternoon or the evening, and they are refreshing. She consumes 1 [place], 1 coffee, and 1 soda per day. She denies tobacco, alcohol, and recreational drug use. [facility] Past Medical History Medical History Rhinorrhea Asthma Surgical History Surgical History History of total left hip replacement (2019) History of cholecystectomy (2017) Family History Family History Mother Diabetes mellitus Family history of cardiovascular disease Sibling Family history of obesity Family history of coronary artery disease Family history of sleep apnea Father Family history of cardiovascular disease, Onset Age: 73 Other Carcinoma of colon Grandparent Carcinoma of colon Social History Social History Smoking status: Never smoker Alcohol intake: never Medications Home Medications ?Medication ?Instructions ?Recorded ?Confirmed ?Type multivitamin (One Daily 1 tablet PO DAILY 07/04/21 0 04/29/25 History Multivitamin tablet) inulin 2 gram chewable tablet g PO 01/01/22 04/29/25 H istory (Fiber Gummies) cholecalciferol (vitamin D3) 50 50 mcg PO DAILY 04/29/25 History mcg (2,000 unit) capsule omega-3 fatty acids 500 mg capsule 500 mg PO DAILY 04/29/25 History eszopiclone 3 mg tablet 3 mg PO ONCE #1 tablet 04/0504/29/25 Rx Sleep Procedure A full night polysomnogram using the [employer] multi-channel system recorded the standard physiologic parameters including EEG, EOG, submentalis EMG, anterior tibialis EMG, EKG, body position, nasal and oral airflow using nasal pressure sensor and thermistor.? Respiratory parameters of chest and abdominal movements were recorded with Respiratory Inductance Plethysmography belts. Oxygen saturation was recorded by pulse oximetry. Video monitoring was also performed. Sleep stages, periodic limb movements, and EEG arousals were scored in 30 second epochs according to the criteria of the AASM Scoring Manual. The Apnea-Hypopnea Index was calculated using [facility] guidelines for definition of hypopnea with 4% O2 desaturations while scoring respiratory events. Sleep Architecture The total recording time was 453.6 minutes.? The total sleep time was 315.5 minutes. Sleep latency was 22.2 minutes. REM latency was 105.0 minutes. Sleep efficiency was 69.6%. The patient had 30 awakenings for an awakening index of 5.7. Wake after sleep onset time was 116.0 minutes. The patient spent 27.5 minutes, 8.7% of total sleep time in Stage N1. The patient spent 141.5 minutes, 44.8% in Stage N2. The patient spent 92.0 minutes, 29.2% in Stage N3. The patient spent 54.5 minutes, 17.3% in Stage REM sleep. Respiratory Analysis The patient had 6 hypopneas for an overall Apnea Hypopnea Index of 1.1. The REM Apnea Hypopnea Index was 3.3. The NREM Apnea Hypopnea Index was 1.1. The patient had a Central Apnea Hypopnea Index of 0. There was no evidence of Sadi-Nielsen Respirations. Arousals There were 99 total arousals for an arousal index of 18.8. There were 67 spontaneous arousals for an index of 12.7. There were 3 arousals due to respiratory events for an index of 0.6. There were 21 arousals due to periodic limb movements for an index of 4.0.? There were 8 arousals due to isolated limb movements for an index of 1.5. Periodic Limb Movements The patient had 30 isolated limb movements with an index of 5.7. The patient had 135 periodic limb movements with an index of 25.7, which is elevated (normal < 15). Patient had a total of 165 limb movements with a total limb movement index of 31.4. Oximetry Data The patient had an average oxygen saturation of 94.1% in sleep with a minimum oxygen saturation of 90.0% and a maximum oxygen saturation of 98.0%. The patient had 7 oxygen desaturations that were 4% or greater resulting in an Oxygen Desaturation Index of 1.3.? The patient spent 0 minutes of total sleep time with an oxygen saturation below 88%. Snoring Profile Mild snoring was present throughout the study. Cardiac Profile The EKG showed normal sinus rhythm. No arrhythmias or premature beats were seen. The patient had an average pulse rate of 64.6 bpm with a minimum pulse of rate of 51.0 bpm and a maximum pulse rate of 93.0 bpm.? EEG Profile No signs of seizure activity seen. Alpha intrusion was present throughout the study. Assessment and Plan Assessment and Plan (1) Excessive daytime sleepiness: Code(s): G47.19 - Other hypersomnia Status: Acute Assessment and Plan: The patient had an overall AHI of 1.1 with desaturation down to 90%. This is not consistent with sleep-disordered breathing. Alpha intrusion was present throughout the study. Alpha intrusion, also known as alpha-delta sleep, is an EEG finding where alpha waves are present during NREM sleep. Alpha waves are typically present in wake. While alpha intrusion can be seen in a small subset of healthy individuals, it is often found in patients with depression, fibromyalgia, chronic pain and other sleep disorders. Clinically, alpha intrusion presents as non-restorative sleep. Treatment of alpha intrusion is directed towards the underlying cause. (2) PLMD (periodic limb movement disorder): Code(s): G47.61 - Periodic limb movement disorder Status: Acute Assessment and Plan: The patient had a significant number of limb movements during the study with the majority being periodic in nature. Approximately 15% of the periodic limb movements caused arousals in the patient's sleep. The patient's sleep history does not suggest Restless Leg Syndrome. I recommend that the patient have a serum ferritin drawn for evaluation of iron deficiency anemia. If the patient has a serum ferritin less than 75 ng/mL, I recommend starting a daily iron supplement and a Vitamin C supplement for better absorption. If the serum ferritin is greater than 75 ng/mL, I recommend starting a dopamine agonist and titrating the dose until symptoms resolve. There are nonpharmacological methods to treat limb movements including daily exercise, stretching calf muscles before bed, avoiding excessive amounts of caffeine and alcohol, vitamin B supplementation, magnesium lotion massaged into legs before bed, and use of a weighted blanket. Data The data obtained during this sleep study is adequate for interpretation. Certification This sleep study has been reviewed by a board certified sleep medicine physician.
== END 2025-05-12 06:38 | disposition home or self-care (01) ==
LOC: ANHCSM 08:06
PROVIDERS: PCP Family Medicine Adolescent Medicine; Visit Provider Nurse Practitioner Family
DX: G47.19 Other hypersomnia (principal); G47.61 Periodic limb movement disorder
CPT/HCPCS: 95810

== ENCOUNTER 2025-08-26 09:01 | Outpatient (CLI) | payer BC, SELFPAY ==
--- OUTSIDE RECORDS SUMMARY | 2019-04-10 05:25 | XMS_ITS | Continuity of Care Document ---
Author Organization [facility] Address [address] [place] [address] Phone Care Team Providers Care Gas Station Manager Name Role Phone Floyd Olmstead MD Unavailable Unavailable Allergies, Adverse Reactions, Alerts Substance Reaction Status Criticality No Known Allergies Active No Inform ation Medications Medication Instructions Dosage Effective Dates (start - stop) Status Comments diclofenac sodium 75 mg tablet,delayed release take 1 tablet by oral route 2 times every day 75 MG - Active SYMBICORT (unknown strength) Not Available - Active MELOXICAM (unknown strength) Not Available - Active Procedures Procedure Date Office/outpatient visit,est, mod 2018 Office/outpatient visit,est, mod 2018 X-ray Exam Hip Unilat With Pelvis When P erf 2-3 View Depo Medrol Methylprednisolone 40 MG inj Asp/inject major joint or bursa w/o US g uidance Office/outpatient visit,new, low 2018 Advance Directives Directive Yes / No Effective Date File Name No Information Encounters Encounter Description Practice Location Reason(s) For Visit Diagnoses Date Provider Providers Copied on Encounter Office/outpat ient visit,est, mod [facility], [address] [place], [place], [id number], [place] tel:[phone] [facility] Left Hip (chief complaint) Unilateral primary osteoarthritis, left hip 201 9 Aysha Barrientos. [address], [address], [place], [place], [id number] , [place]. tel: [phone] Office/outpat ient visit,est, mod [facility], [address], [place], [place], [id number], [place] tel:[phone] [facility] Left hip (chief complaint) Trochanteric bursitis, left hipPain in left hip 9 Aysha Barrientos. [address], [place], [place], [id number] , [place]. tel: [phone] Office/outpat ient visit,new, low [facility], [address] [address], [place], [place], [id number], [place] tel:[phone] [facility] left hip pain (chief complaint) Pain in left hipTrochanteric bursitis, left hip Jan-0 9 Braden Billingsley. [address], [address], [place], [place], [id number] , [place]. tel: [phone] Family History Family Member Type Diagnosis Age At Onset Brother Problem (finding) Depression Mother Problem (finding) Hypertension Father Problem (finding) Hypertension Mother Problem (finding) Diabetes Father Problem (finding) Heart Disease Mother Problem (finding) Heart Disease Mother Problem (finding) Cancer, unknown Immunizations Vaccine Date Status Comments influenza, injectable, quadr ivalent, (3 years or older) administered Source: Other Provid er Payers Payer name Insurance type Covered republican ID Authoriza tisam(s) Sal [facility] [id number] Social History Type Description Quantity Date Captured Comments Alcohol Use Details Unknown Caffeine Use Details Unknown Tobacco Use Status Non-smoker Smoking Status Never smoker Non-Smoking Tobacco Use Details : No Details Available : No Details Available Sex Female Vital Signs Date / Time: Height Weight BMI Pulse Rate Blood Pressure Temperature Respiratory Rate Body Surface Area Head Circumference Head Circ. Percentile Wt./Javier. Percentile BMI percentile Pulse Ox Inhaled Ox 11:03 AM 67.00 in 92.986 kg (205.00 lbs) 32.1 1 kg/m dyllaner (2) Chief Complaint And Reason For Visit From encounter dated '04/10/2019 11:25'. Left Hip (chief complaint) Reason For Referral Reason For Referral No Information Plan Of Treatment Date Type Action Status Referral Ordered: Arthrogram of hip joint LT hip Appointment date/timeframe: 04/06/2019 ordered Referral Ordered: MRI lower extrm joint, with contrast LT hip Appointment date/timeframe: 04/06/2019 ordered Referral Ordered: X-ray Exam Hip Unilat With Pelvis When Perf 2-3 View LT hip ordered History Of Present Illness Encounter Date Complaint History Of Prese nt Illness Left Hip Left hip Patient comes in today for follow up of her left hip pain left hip pain Ms Valle is a 48 year old female who complains of left hip pain. She presents with pain and decreased range of motion on the left side. She states that the symptoms have been chronic non-traumatic. Pain started last summer after [place]. The symptoms occur occasionally. The problem is unchanged. Currently the patient states that the symptoms are moderate. The pain is described as aching, dull, throbbing. The symptoms occur intermittently. The patient is experiencing pain in the following location: lateral region on the left side. She rates her worst pain as 5/10. The symptoms are aggravated by bending, ascending stairs, walking and sleeping on the affected side. Dali states that the symptoms are relieved by exercise and NSAIDs. In addition to left hip pain the patient is also experiencing instability, limping and popping. Prior NSAIDs include Mobic. She has had no previous treatment. Patient has not had any pertinent therapy for this condition. Patient has had no prior surgeries. There were no previous episodes. She experienced no previous injury. Functional Status Date Functional Assessmen t No Information Instructions Date Instruction Additional Infor mation No Information Assessments Type Assessment Date assessment Unilateral primary osteoarthriti s, left hip Patient Care Teams Name Effective Dates (start - stop) Status Members No Information
--- NOTE | ~2025-08-26 | MM_ITS ---
EXAMINATION: MM screening umu BI w todd HISTORY: Screening TECHNIQUE: Craniocaudal and mediolateral oblique 3-D tomosynthesis images were obtained and synthetic 2-D images were generated. CAD analysis was submitted and interpreted. COMPARISON: Comparison to multiple prior studies sequentially, with oldest reviewed study dated 11/30/2019. BREAST PARENCHYMAL COMPOSITION: Not dense: There are scattered areas of fibroglandular density. FINDINGS: There is no evidence of suspicious mass, calcification, or architectural distortion to suggest malignancy in either breast. There has been no suspicious interval change. IMPRESSION: 1. No mammographic evidence of malignancy. 2. Recommend routine screening mammography in one year. BI-RADS Category 1: Negative Reviewed, dictated and finalized at location B. OR COMMISSARY AGENT
--- OUTSIDE RECORDS SUMMARY | 2025-08-26 09:26 | XMS_ITS | Clinical Summary ---
Author Organization [facility] Address [address] [place] [address] Phone Care Team Providers Care Vp Software Engineering Name Role Phone Jose Coffman MD Primary Care Provider [phone] Allergies No known active allergies Medications budesonide-form [...] on file Legal Sex Female 4:02 PM SPACE PLANNER Gender Identity Not on file Sexual Orientation Not on file Last Filed Vital Signs Vital Sign Reading Time Taken Comments Blood Pressure 126/83 09/06/2021 1:58 PM SPACE PLANNER Pulse 77 09/06/2021 1:58 PM SPACE PLANNER Temperature - - Respiratory Rate - - Oxygen Saturation - - Inhaled Oxygen Concentration - - Weight 97.5 kg (215 lb) 09/06/2021 1:58 PM SPACE PLANNER Height 170.2 cm (5' 7) 09/06/2021 1:58 PM SPACE PLANNER Body Mass Index 33.67 09/06/2021 1:58 PM SPACE PLANNER Plan of Treatment Health Maintenance Due Date [...] Most Recently Relevant to Health Maintenance Insurance [facility] [employer] CHO[facility] Care Teams Vp Software Engineering Relationship Specialty Start Date End Date Jose Cfofman MD PCP - General Family Practice 09/14/20
--- OUTSIDE RECORDS SUMMARY | 2025-08-26 09:26 | XMS_ITS | Clinical Summary ---
Author Organization [facility] Address [address] [place] [address] Care Team Providers Care Mold Checker Name Role Phone Jose Coffman MD Primary Care Provider + Jose Coffman MD Unavailable [phone] Jose Coffman MD Unavailable [phone] Source Comments [facility],non-owned Affiliates and Associated Physician Practices is amultiple site organization consisting of ambulatory clinics and hospital sitesin [place], [place], [place]. This disclosure is being madepursuant to the Care Everywhere program and may not contain all information available regarding this patient. Last updated 18.[facility] Allergies No known active allergies Medications * [...] of 2) 2018 SCREENING FOR DIABETES 05/11/2019 DEPRESSION SCREENING 10/14/2024 COVID-19 VACCINE (1 - 2023-2 5 season) 2025 INFLUENZA VACCINE (#1) 2025 07/22/2019 HIB VACCINE [...] Billing Address Personal/Family 1970 [address], [id number] ANTHEM ANTHEM ANTHEM ANTHEM ANTHEM ANTHEM ANTHEM Care Teams Mold Checker Relationship Specialty Start Date End Date Jose Coffman MD [address] [address] PCP - General 06/05/19 Jose Coffman MD [address] [place] [id number] Family Medicine 06/05/19 Jose Coffman MD [address] [place] [id number] 04/21/19
--- OUTSIDE RECORDS SUMMARY | 2025-08-26 09:26 | XMS_ITS | Clinical Summary ---
Author Organization [facility] C Address [address] [place] [address] Care Team Providers Care Sand Polisher Name Role Phone Jose Coffman MD Primary [...] on file Legal Sex Female 2:59 AM CANVAS CUTTER Gender Identity Not on file Sexual Orientation Not on file Last Filed Vital Signs Vital Sign Reading Time Taken Comments Blood Pressure 131/92 11/13/2024 1:30 PM CANVAS CUTTER Pulse 79 11/13/2024 1:30 PM CANVAS CUTTER Temperature 36.8 C (98.2 F) 11/13/2024 1:30 PM CANVAS CUTTER Respiratory Rate 16 11/13/2024 1:30 PM CANVAS CUTTER Oxygen Saturation 99% 11/13/2024 1:30 PM CANVAS CUTTER Inhaled Oxygen Concentration - - Weight 97.5 kg (215 lb) 11/13/2024 11:11 AM CANVAS CUTTER Height 170.2 cm (5' 7) 11/13/2024 11:11 AM CANVAS CUTTER Body Mass Index 33.67 11/13/2024 11:11 AM CANVAS CUTTER Plan of Treatment Health Maintenance Due Date [...] Associated Diagnosis Comments COLONOSCOPY 11/13/2024 11:02 AM CANVAS CUTTER SCREENING MAMMOGRAM Routine 11/25/2012 1 1:57 AM CANVAS CUTTER from Last 3 Months or Most Recently Relevant to Health Maintenance Results * Colonoscopy (11/13/2024 11:02 AM CANVAS CUTTER) Anatomical Region Laterality Modality Other Narrative Procedure Note Hien Franklin MD - 11/13/2024 11:02 AM CST [facility] Patient Name: Dali Valle Procedure Date: 11/13/2024 11:02 AM Date of : 1970 Admit Type: Outpatient Age: 54 Gender: Female Attending MD: Hien Franklin M.D. Room: [facility] ENDOSCOPY ROOM 2 Note Status: [...] increasedrisk: Family history of colon polyps in [id number] relatives, Last colonoscopy: August 2018 Referring MD: [...] procedure were verified by the physician, the ore tester and the roving technician in the endoscopy suite. Mental Status [...] scope was passed under direct vision. TheColonoscope [id number] was introduced through the anus and advanced to the the cecum, identified by appendiceal orifice and ileocecal valve. The scopewas passed under direct vision. The PediatricColonoscope [id number] was introduced through the and advanced to [...] 11:02 AM Procedure Code(s): --- Professional --- 87413, Colonoscopy, flexible; diagnostic, including collection of specimen(s) by brushing or washing, when performed (separateprocedure) --- Technical --- 09194, Colonoscopy, flexible; diagnostic, including collection of specimen(s) [...] perforation orabscess without bleeding CPT copyright 2020 [employer]. All rights reserved. The codes documented in this report are preliminary and upon appointment setter reviewmay be revised to meet current compliance requirements. Recognized by the [employer] for promoting quality in endoscopy Hien Franklin MD ENDOSCOPY PROCEDURES Final Resul t * Screening Mammogram (11/25/2012 11:57 AM CANVAS CUTTER) Anatomical Region Laterality Modality Breast N/A Mammography 11/25/2012 11:5 7 AM CANVAS CUTTER Narrative 11/25/2012 12:16 PM CANVAS CUTTER TAMRA NERI M.D. FINAL REPORT ACC# Date Time Exam [id number] Nov 25, 2012 11:57:00 [facility] [id number] Screening Mamm Bilat Technologist(s): Jaycee Brown; ; EXAMINATION: Mammogram Findings: A Full-Field Digital Screening Mammogram was performed. Views obtained: bilateral craniocaudal; bilateral mediolateral oblique. Computer Aided Detection was performed with [employer], version 9.2. The present examination has been compared to prior imaging studies performed at [facility] on 06/19/2011, 05/02/2010 and 08/26/2009. There [...] M.D. FINAL REPORT ACC# Date Time Exam [id number] Nov 25, 2012 11:57:00 [facility] [id number] Screening Mamm Bilat Technologist(s): Jaycee Brown; ; EXAMINATION: Mammogram Findings: A Full-Field Digital Screening Mammogram was performed. Views obtained: bilateral craniocaudal; bilateral mediolateral oblique. Computer Aided Detection was performed with [employer], version 9.2. The present examination has been compared to prior imaging studies performed at [facility] on 06/19/2011, 05/02/2010 and 08/26/2009. There [...] Most Recently Relevant to Health Maintenance Insurance [facility] Advance Directives For more information, please contact: [phone] * Full Code (Latest Code Status on File) Date Activated Date Inactivated Comments 11/13/2024 11:08 AM 11/13/2024 5:44 PM Care Teams Sand Polisher Relationship Specialty Start Date End Date Jose Coffman MD PCP - General 07/31/16
--- OUTSIDE RECORDS SUMMARY | 2025-08-26 09:26 | XMS_ITS | Clinical Summary ---
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 Role Phone Unavailable Primary Care Provider [...] Date Last Done Comments Cervical Cancer Screening Pap Smear (Age 30 to 64) Every 3 Years 1970 Colorectal Cancer Screening Colonoscopy (10 Years) 1970 Annual Physical 1971 Hepatitis C 1986 DTaP, Tdap and Td Vaccines (1 - Tdap) 1987 Hepatitis B Vaccines (1 of 3 - 19+ 3-dose series) 1987 Cervical Cancer Screening Pap with HPV Testing (Age 30 to 64) Every 5 Years 1998 Cervical Cancer Screening with HPV 1998 Mammogram Screening 2008 Pneumococcal Vaccine: 50+ Years (1 of 1 - PCV) 2018 Zoster Vaccines (2 of 2) 03/31/2021 02/03/2021 COVID-19 Vaccine (3 - 2024- season) 2025 10/09/2021, 12/22/2020 Influenza Adult (#1) 2025 09/10/2023, 09/03/2022, 08/02/2021, Additional history exists Hepatitis A Vaccines Aged Out No long er eligible based on patient's age to complete this topic Meningococcal B Vaccine Aged Out No l onger eligible based on patient's age to complete this topic Meningococcal Vaccine Aged Out No amna katie eligible based on patient's age to complete this topic RSV Immunizations Under 20 Months Aged Out No longer eligible based on patient's age to complete this topic [place] [address] [place] [address]
== END 2025-08-26 09:02 | disposition home or self-care (01) ==
LOC: ANHFOHIMG 09:03
PROVIDERS: PCP Family Medicine Adolescent Medicine
DX: Z12.31 Encounter for screening mammogram for malignant neoplasm of breast (principal)
CPT/HCPCS: 77063; 77067

== ENCOUNTER 2025-08-26 10:29 | Outpatient (CLI) | payer BC, SELFPAY ==
--- NOTE | ~2025-08-26 | US_ITS ---
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 Findings: Correlating with the palpable area there is no abnormal mass or mass effect, no abnormal flow IMPRESSION: Unremarkable exam. If symptoms persist CT or MRI is suggested Reviewed, dictated and finalized at location P. BREAKER
== END 2025-08-26 10:30 | disposition home or self-care (01) ==
LOC: MICIMG 10:30
PROVIDERS: PCP Family Medicine Adolescent Medicine; Visit Provider Nurse Practitioner Family
DX: R22.41 Localized swelling, mass and lump, right lower limb (principal)
CPT/HCPCS: 76882